=== PATIENT | female | born 1970 | race Caucasian/White ===

== ENCOUNTER 2018-01-01 10:30 | Outpatient (RCR) | payer MEDICARE, MEDICAID, SELFPAY ==
--- NOTE | 2017-09-26 16:00 | PT.OIE ---
Current Diagnoses Stress incontinence (female) (male) (09/26/17) Provider Visit Care Team Role Provider Type Barry Elam MD Attending Provider Non-Staff Primary Care Provider Specialty: Internal Medicine Address: [facility] [place], [address] Email: Physical Therapy Initial Evaluation PT-OP-A Visit Information Start: 09/26/17 08:03 Freq: Status: Active Protocol: Document 09/26/17 09:05 LRN (Rec: 09/26/17 09:59 LRN [id number]) Out-Patient Physical Therapy Visit Information Visit Information Visit Type Initial Evaluation Visit Note 04/12 Visit Start Time 09:05 Visit Stop Time 10:55 Total Visit Minutes 50 Visit Number 1 Number of OCCUPATIONAL HEALTH COORDINATOR Visits 0 Evaluation Information Evaluation Date 09/26/17 PT-OP-B Current Condition Start: 09/26/17 08:03 Freq: Status: Active Protocol: Document 09/26/17 09:05 LRN (Rec: 09/26/17 18:31 LRN [id number]) Current Condition History of Current Condition Onset Date 2014 Current Complaints Urinary Leakage uncontrolled at times History of Current Condition Pt reports in 1999 after giving to her daughter ( 1998) she experienced mild incontinence that was treated with physical therapy with good results. In 2014 she was diagnosed with Multiple Sclerosis and was experiencing urinary incontinence with or without activity and sometimes uncontrolled. She denies having fecal leakage. Recently she has been dealing with onset of kidney stones that is a side effect of medications she is currently taking for her migraines. She denies having bladder infections. She notes her urinary leakage is constant through the day. Leakage is variable in nature from wetting her pads to outerwear. She reports having urge sensations, but sometimes the leakage is of sudden onset. She sometimes can delay 1-2 minutes. Leakage occurs in all positions. She is urinating 10+ times per day and 4+ times at night. Prior Treatments and Tests 1999 post- physical therapy with good results. She reports being told her bladder was voiding completely . Future Testing and Treatments Planned She is seeing a urologist tomorrow for her kidney stones . Treatment Goals Patient/Caregiver Goals Pt goal is to strengthen her PF and to learn what to do and how to perform a proper PF contraction to minimize her urinary leakage. Prior Functional Status Baseline Function- ADL's Independent Baseline Function- Mobility Independent Current Functional Impairments (Reported) Functional Limitations- ADL's Sitting tolerance limited due to back pain. Functional Limitations- Other Limited in social outings due to level of incontinence Personal Factors Other Personal Factors That May Effect Dx: Multiple Sclerosis, Therapy/Recovery Fibromyalgia, Kidney stones in both kidneys (pt believes is due to migraine medications), history of irritable bowel syndrome, tailbone fx, migraines, 4 L knee surgeries. PT-OP-C Subjective Start: 09/26/17 08:03 Freq: Status: Active Protocol: Document 09/26/17 09:05 LRN (Rec: 09/26/17 18:31 LRN [id number]) OP-PT Subjective Patient Comments Patient Comments States she may have to have the kidney stones blasted because they are so large. Patient Questionnaires Pelvic Pain and Urgency/Frequency Patient Symptom Scale Pelvic Pain Score 17 PT-OP-I Pelvic Floor Start: 09/26/17 08:03 Freq: Status: Active Protocol: Document 09/26/17 09:05 LRN (Rec: 09/26/17 18:31 LRN [id number]) Pelvic Floor Assessment Urine Pelvic Floor Surgery No Urinary Symptoms Urge Sensation Prolapse Other Urinary Symptoms Sudden loss of continence. Leakage Size Medium Leakage Cause Cough Exercise Lifting Sneeze Urge Other Leakage Causes Without reason Leaks Per Day 10+ Voiding Frequency 10+ Nocturia 4+ Urine Pad Type Maxi Pad Depends Pelvic Clock Pelvic Clock 3-6 Tenderness Pelvic Clock 9-12 Tenderness Tightness Prolapse Cystocele Grade 3 Perineal Descent Resting Present Bearing Present Contraction Ability Voluntary Contraction Weak Manual Muscle Testing Left 0 Manual Muscle Testing Right 1 Manual Muscle Testing Anterior 0 Manual Muscle Testing Posterior 3 Muscle Endurance (Seconds) 0 Number of Quick Contractions In 10 2 Seconds Comments Pelvic Floor Comments Endurance: Posterior PF lift felt 10 sec's, Anterior and sidewall PF lift: 0 sec's Quick Contractions: 2 reps prior to decrease strength. Contraction only felt in posterior PF. PT-OP-Q Treatments Start: 09/26/17 08:03 Freq: Status: Active Protocol: Document 09/26/17 09:05 LRN (Rec: 09/26/17 18:31 LRN [id number]) Self-Care/Home Management Treatment Education Patient Education Home Exercise Program Other Education H/O's and I/S's given for Bladder Diary. H/O's and I/S's given for HEP of Kegel [employer] Aggravator Ex's. PT-OP-T Assessment and Plan Start: 09/26/17 08:03 Freq: Status: Active Protocol: Document 09/26/17 09:05 LRN (Rec: 09/26/17 18:31 LRN [id number]) Physical Therapy Assessment Rehab Potential Rehabilitation Potential Fair Evaluation Complexity Number of Personal Factors/Comorbidities 3 or More Number of Body Systems Impaired 3 Clinical Presentation at Evaluation Evolving Impairments Impairments Activity Tolerance ROM Strength Other Impairments Dysfunction of Urinary system due to Kidney stones Other Concerns Barriers to Rehabilitation MS, kidney stones, migraines, fibromyalgia, fractured tailbone, hx of L knee surgeries. Goals Four Impairment Decreased # of Quick Contractions prior to fatigue (2 reps) Instructional Support Technician Goal (LTG) Pt will be able to perform 10 quick contractions prior to fatigue in order to delay urination to prevent urinary leakage. Three Impairment Decreased PF Endurance Instructional Support Technician Goal (LTG) Pt will be able to hold a PF contraction for 10 sec's or greater with ant, post, sidewalls in order to decrease number of urinary incontinence episodes. LTG Duration 12/29/17 Two Impairment Weakness of PF Instructional Support Technician Goal (LTG) Pt will demonstrate PF strength of 4/5: squeeze pressure (contraction) and lift or displacement from ant, post, and side [place] to decrease the amount of leakage to wetting only pads. LTG Duration 12/29/17 One Impairment Lacks appropriate HEP Instructional Support Technician Goal (LTG) Pt will be independent in a self care/home exercise program LTG Duration 12/29/17 Assessment Summary Assessment Pt presents with pelvic floor (PF) anterior and lateral wall weakness, 3rd degree cystocele with prolapse extending to the vaginal opening during straining and coughing. The pt's level of urinary incontinence is exacerbated by her multiple sclerosis, possibly causing neurologic dysfunction effecting her ability to maintain continence. She also demonstrates weakness of her core, PF, hips, and is not able to perform an isolated PF contraction. The pt will benefit from skilled physical therapy for PF/core/hip strengthening; ROM and behavioral modification to help improve her level of continence. Physical Therapy Plan Frequency and Duration Frequency of Treatment 2x/Week Plan of Care Start Date 09/26/17 Plan of Care End Date 09/28/18 Therapeutic Interventions Therapeutic Interventions Home Exercise Program Joint Mobilizations Manual Therapy Neuromuscular Re-education Patient/Caregiver Education Self-Care/Home Management Soft Tissue Mobilization Therapeutic Exercises Modalities Cold Pack/Ice Massage Next Visit Focus/Plan Next Note Type Treatment Note Next Visit Plan Review Bladder Diary, training and ex for PF contraction in isolation of substitute muscles, facilitation for achieving and anterior PF contraction, progress core stabilization and hip ROM/ strengthening ex's.
--- NOTE | 2017-09-26 16:00 | PT.OPPOC ---
Current Diagnoses Stress incontinence (female) (male) (09/26/17) Provider Visit Care Team Role Provider Type Barry Elam MD Attending Provider Non-Staff Primary Care Provider Specialty: Internal Medicine Address: [facility] [place] [address] [place], [address] Email: Plan Of Care PT-OP-T Assessment and Plan Start: 09/26/17 08:03 Freq: Status: Active Protocol: Document 09/26/17 09:05 LRN (Rec: 09/26/17 18:31 LRN [id number]) Physical Therapy Assessment Rehab Potential Rehabilitation Potential Fair Evaluation Complexity Number of Personal Factors/Comorbidities 3 or More Number of Body Systems Impaired 3 Clinical Presentation at Evaluation Evolving Impairments Impairments Activity Tolerance ROM Strength Other Impairments Dysfunction of Urinary system due to Kidney stones Other Concerns Barriers to Rehabilitation MS, kidney stones, migraines, fibromyalgia, fractured tailbone, hx of L knee surgeries. Goals Four Impairment Decreased # of Quick Contractions prior to fatigue (2 reps) Reproductive Endocrinologist Goal (LTG) Pt will be able to perform 10 quick contractions prior to fatigue in order to delay urination to prevent urinary leakage. Three Impairment Decreased PF Endurance Reproductive Endocrinologist Goal (LTG) Pt will be able to hold a PF contraction for 10 sec's or greater with ant, post, sidewalls in order to decrease number of urinary incontinence episodes. LTG Duration 12/29/17 Two Impairment Weakness of PF Usp Goal (LTG) Pt will demonstrate PF strength of 4/5: squeeze pressure (contraction) and lift or displacement from ant, post, and side [place] to decrease the amount of leakage to wetting only pads. LTG Duration 12/29/17 One Impairment Lacks appropriate HEP Reproductive Endocrinologist Goal (LTG) Pt will be independent in a self care/home exercise program LTG Duration 12/29/17 Assessment Summary Assessment Pt presents with pelvic floor (PF) anterior and lateral wall weakness, 3rd degree cystocele with prolapse extending to the vaginal opening during straining and coughing. The pt's level of urinary incontinence is exacerbated by her multiple sclerosis, possibly causing neurologic dysfunction effecting her ability to maintain continence. She also demonstrates weakness of her core, PF, hips, and is not able to perform an isolated PF contraction. The pt will benefit from skilled physical therapy for PF/core/hip strengthening; ROM and behavioral modification to help improve her level of continence. Physical Therapy Plan Frequency and Duration Frequency of Treatment 2x/Week Plan of Care Start Date 09/26/17 Plan of Care End Date 12/29/17 Therapeutic Interventions Therapeutic Interventions Home Exercise Program Joint Mobilizations Manual Therapy Neuromuscular Re-education Patient/Caregiver Education Self-Care/Home Management Soft Tissue Mobilization Therapeutic Exercises Modalities Cold Pack/Ice Massage Next Visit Focus/Plan Next Note Type Treatment Note Next Visit Plan Review Bladder Diary, training and ex for PF contraction in isolation of substitute muscles, facilitation for achieving and anterior PF contraction, progress core stabilization and hip ROM/ strengthening ex's. Plan of Care Dates Plan of Care Start Date 09/26/17 Plan of Care End Date 12/29/17 Please Sign and Return: I have reviewed this Plan of Care and certify that the skilled therapy services above are required to meet the patient?s needs. Physician Signature Date Printed Name and Credentials Clinical Instructor Signature Printed Name and Credentials
--- NOTE | 2017-10-12 11:16 | PT.OTN ---
Current Diagnoses Stress incontinence (female) (male) (10/12/17) Physical Therapy Treatment Note PT-OP-A Visit Information Start: 09/26/17 08:03 Freq: Status: Active Protocol: Document 10/12/17 07:30 AMB (Rec: 10/12/17 08:16 AMB [id number]) Out-Patient Physical Therapy Visit Information Visit Information Visit Type Treatment Note Visit Start Time 07:30 Visit Stop Time 08:15 Total Visit Minutes 45 Visit Number 2 Evaluation Information Evaluation Date 09/26/17 PT-OP-B Current Condition Start: 09/26/17 08:03 Freq: Status: Active Protocol: Document 09/26/17 09:05 LRN (Rec: 09/26/17 18:31 LRN [id number]) Current Condition History of Current Condition Onset Date 2014 Current Complaints Urinary Leakage uncontrolled at times History of Current Condition Pt reports in 1999 after giving to her daughter ( 1998) she experienced mild incontinence that was treated with physical therapy with good results. In 2014 she was diagnosed with Multiple Sclerosis and was experiencing urinary incontinence with or without activity and sometimes uncontrolled. She denies having fecal leakage. Recently she has been dealing with onset of kidney stones that is a side effect of medications she is currently taking for her migraines. She denies having bladder infections. She notes her urinary leakage is constant through the day. Leakage is variable in nature from wetting her pads to outerwear. She reports having urge sensations, but sometimes the leakage is of sudden onset. She sometimes can delay 1-2 minutes. Leakage occurs in all positions. She is urinating 10+ times per day and 4+ times at night. Prior Treatments and Tests 1999 post- physical therapy with good results. She reports being told her bladder was voiding completely . Future Testing and Treatments Planned She is seeing a urologist tomorrow for her kidney stones . Treatment Goals Patient/Caregiver Goals Pt goal is to strengthen her PF and to learn what to do and how to perform a proper PF contraction to minimize her urinary leakage. Prior Functional Status Baseline Function- ADL's Independent Baseline Function- Mobility Independent Current Functional Impairments (Reported) Functional Limitations- ADL's Sitting tolerance limited due to back pain. Functional Limitations- Other Limited in social outings due to level of incontinence Personal Factors Other Personal Factors That May Effect Dx: Multiple Sclerosis, Therapy/Recovery Fibromyalgia, Kidney stones in both kidneys (pt believes is due to migraine medications), history of irritable bowel syndrome, tailbone fx, migraines, 4 L knee surgeries. PT-OP-C Subjective Start: 09/26/17 08:03 Freq: Status: Active Protocol: Document 10/12/17 07:30 AMB (Rec: 10/12/17 08:16 AMB [id number]) OP-PT Subjective Patient Comments Patient Comments Pt states she did not get handoutsat the last visit, so she did not do a bladder diary . She reports she has had a bladder study and they said she was not retaining urine. PT-OP-I Pelvic Floor Start: 09/26/17 08:03 Freq: Status: Active Protocol: Document 09/26/17 09:05 LRN (Rec: 09/26/17 18:31 LRN [id number]) Pelvic Floor Assessment Urine Pelvic Floor Surgery No Urinary Symptoms Urge Sensation Prolapse Other Urinary Symptoms Sudden loss of continence. Leakage Size Medium Leakage Cause Cough Exercise Lifting Sneeze Urge Other Leakage Causes Without reason Leaks Per Day 10+ Voiding Frequency 10+ Nocturia 4+ Urine Pad Type Maxi Pad Depends Pelvic Clock Pelvic Clock 3-6 Tenderness Pelvic Clock 9-12 Tenderness Tightness Prolapse Cystocele Grade 3 Perineal Descent Resting Present Bearing Present Contraction Ability Voluntary Contraction Weak Manual Muscle Testing Left 0 Manual Muscle Testing Right 1 Manual Muscle Testing Anterior 0 Manual Muscle Testing Posterior 3 Muscle Endurance (Seconds) 0 Number of Quick Contractions In 10 2 Seconds Comments Pelvic Floor Comments Endurance: Posterior PF lift felt 10 sec's, Anterior and sidewall PF lift: 0 sec's Quick Contractions: 2 reps prior to decrease strength. Contraction only felt in posterior PF. PT-OP-Q Treatments Start: 09/26/17 08:03 Freq: Status: Active Protocol: Document 10/12/17 07:30 AMB (Rec: 10/12/17 10:17 AMB [id number]) Neuro Re-Education Treatment Other Activities 3 Details pelvic floor contraction Comments without abdominal compensation with biofeedback 2 Details long holds Reps/Duration 5 seconds, tried 10 seconds Comments relax 10 seconds between in hooklying 1 Details quick flicks Reps/Duration 1 sec on, 1 second off Comments hooklying PT-OP-T Assessment and Plan Start: 09/26/17 08:03 Freq: Status: Active Protocol: Document 10/12/17 07:30 AMB (Rec: 10/12/17 10:17 SYD [id number]) Physical Therapy Assessment Assessment Summary Assessment 4.4 uHz maximum early in session, but then 2.5 later in session. Fatigues quickly Physical Therapy Plan Next Visit Focus/Plan Next Note Type Treatment Note Next Visit Plan Facilitation of anterior PF, give bladder diary again.
--- NOTE | 2017-10-23 08:13 | PT.OTN ---
Current Diagnoses Stress incontinence (female) (male) (10/23/17) Physical Therapy Treatment Note PT-OP-A Visit Information Start: 09/26/17 08:03 Freq: Status: Active Protocol: Document 10/23/17 07:30 AMB (Rec: 10/23/17 07:30 AMB [id number]) Out-Patient Physical Therapy Visit Information Visit Information Visit Type Treatment Note Visit Note 06/10 Visit Start Time 07:30 Visit Stop Time 08:15 Total Visit Minutes 45 Visit Number 3 Evaluation Information Evaluation Date 09/26/17 PT-OP-B Current Condition Start: 09/26/17 08:03 Freq: Status: Active Protocol: Document 09/26/17 09:05 LRN (Rec: 09/26/17 18:31 LRN [id number]) Current Condition History of Current Condition Onset Date 2014 Current Complaints Urinary Leakage uncontrolled at times History of Current Condition Pt reports in 1999 after giving to her daughter ( 1998) she experienced mild incontinence that was treated with physical therapy with good results. In 2014 she was diagnosed with Multiple Sclerosis and was experiencing urinary incontinence with or without activity and sometimes uncontrolled. She denies having fecal leakage. Recently she has been dealing with onset of kidney stones that is a side effect of medications she is currently taking for her migraines. She denies having bladder infections. She notes her urinary leakage is constant through the day. Leakage is variable in nature from wetting her pads to outerwear. She reports having urge sensations, but sometimes the leakage is of sudden onset. She sometimes can delay 1-2 minutes. Leakage occurs in all positions. She is urinating 10+ times per day and 4+ times at night. Prior Treatments and Tests 1999 post- physical therapy with good results. She reports being told her bladder was voiding completely . Future Testing and Treatments Planned She is seeing a urologist tomorrow for her kidney stones . Treatment Goals Patient/Caregiver Goals Pt goal is to strengthen her PF and to learn what to do and how to perform a proper PF contraction to minimize her urinary leakage. Prior Functional Status Baseline Function- ADL's Independent Baseline Function- Mobility Independent Current Functional Impairments (Reported) Functional Limitations- ADL's Sitting tolerance limited due to back pain. Functional Limitations- Other Limited in social outings due to level of incontinence Personal Factors Other Personal Factors That May Effect Dx: Multiple Sclerosis, Therapy/Recovery Fibromyalgia, Kidney stones in both kidneys (pt believes is due to migraine medications), history of irritable bowel syndrome, tailbone fx, migraines, 4 L knee surgeries. PT-OP-C Subjective Start: 09/26/17 08:03 Freq: Status: Active Protocol: Document 10/23/17 07:30 AMB (Rec: 10/23/17 07:44 AMB [id number]) OP-PT Subjective Patient Comments Patient Comments Patient states sx about the same, still difficult to engage pelvic floors, feels like she is using abs about 50 % of the time. PT-OP-I Pelvic Floor Start: 09/26/17 08:03 Freq: Status: Active Protocol: Document 09/26/17 09:05 LRN (Rec: 09/26/17 18:31 LRN [id number]) Pelvic Floor Assessment Urine Pelvic Floor Surgery No Urinary Symptoms Urge Sensation Prolapse Other Urinary Symptoms Sudden loss of continence. Leakage Size Medium Leakage Cause Cough Exercise Lifting Sneeze Urge Other Leakage Causes Without reason Leaks Per Day 10+ Voiding Frequency 10+ Nocturia 4+ Urine Pad Type Maxi Pad Depends Pelvic Clock Pelvic Clock 3-6 Tenderness Pelvic Clock 9-12 Tenderness Tightness Prolapse Cystocele Grade 3 Perineal Descent Resting Present Bearing Present Contraction Ability Voluntary Contraction Weak Manual Muscle Testing Left 0 Manual Muscle Testing Right 1 Manual Muscle Testing Anterior 0 Manual Muscle Testing Posterior 3 Muscle Endurance (Seconds) 0 Number of Quick Contractions In 10 2 Seconds Comments Pelvic Floor Comments Endurance: Posterior PF lift felt 10 sec's, Anterior and sidewall PF lift: 0 sec's Quick Contractions: 2 reps prior to decrease strength. Contraction only felt in posterior PF. PT-OP-Q Treatments Start: 09/26/17 08:03 Freq: Status: Active Protocol: Document 10/23/17 07:30 AMB (Rec: 10/23/17 07:31 AMB [id number]) Neuro Re-Education Treatment Other Activities 3 Details pelvic floor contraction Comments without abdominal compensation in seated 2 Details long holds Reps/Duration 5 seconds, tried 10 seconds Comments relax 10 seconds between in hooklying 1 Details quick flicks Reps/Duration 1 sec on, 1 second off Comments hooklying PT-OP-T Assessment and Plan Start: 09/26/17 08:03 Freq: Status: Active Protocol: Document 10/23/17 07:30 AMB (Rec: 10/23/17 08:12 AMB [id number]) Physical Therapy Assessment Assessment Summary Assessment Pt with greater difficulty in seated. Fatigues quickly. Can relax muscles in the beginning of the session, but then at the end difficulty relaxing. Physical Therapy Plan Next Visit Focus/Plan Next Note Type Treatment Note Next Visit Plan Progress to roll ins, roll outs. Progress relaxation techniques. Work into sitting posture more.
--- NOTE | 2017-10-26 09:13 | PT.OTN ---
Current Diagnoses Stress incontinence (female) (male) (10/26/17) Physical Therapy Treatment Note PT-OP-A Visit Information Start: 09/26/17 08:03 Freq: Status: Active Protocol: Document 10/26/17 08:18 LRN (Rec: 10/26/17 09:12 LRN [id number]) Out-Patient Physical Therapy Visit Information Visit Information Visit Type Treatment Note Visit Note 07/11 Visit Start Time 08:15 Visit Stop Time 09:00 Total Visit Minutes 45 Visit Number 4 Evaluation Information Evaluation Date 09/26/17 PT-OP-B Current Condition Start: 09/26/17 08:03 Freq: Status: Active Protocol: Document 09/26/17 09:05 LRN (Rec: 09/26/17 18:31 LRN [id number]) Current Condition History of Current Condition Onset Date 2014 Current Complaints Urinary Leakage uncontrolled at times History of Current Condition Pt reports in 1999 after giving to her daughter ( 1998) she experienced mild incontinence that was treated with physical therapy with good results. In 2014 she was diagnosed with Multiple Sclerosis and was experiencing urinary incontinence with or without activity and sometimes uncontrolled. She denies having fecal leakage. Recently she has been dealing with onset of kidney stones that is a side effect of medications she is currently taking for her migraines. She denies having bladder infections. She notes her urinary leakage is constant through the day. Leakage is variable in nature from wetting her pads to outerwear. She reports having urge sensations, but sometimes the leakage is of sudden onset. She sometimes can delay 1-2 minutes. Leakage occurs in all positions. She is urinating 10+ times per day and 4+ times at night. Prior Treatments and Tests 1999 post- physical therapy with good results. She reports being told her bladder was voiding completely . Future Testing and Treatments Planned She is seeing a urologist tomorrow for her kidney stones . Treatment Goals Patient/Caregiver Goals Pt goal is to strengthen her PF and to learn what to do and how to perform a proper PF contraction to minimize her urinary leakage. Prior Functional Status Baseline Function- ADL's Independent Baseline Function- Mobility Independent Current Functional Impairments (Reported) Functional Limitations- ADL's Sitting tolerance limited due to back pain. Functional Limitations- Other Limited in social outings due to level of incontinence Personal Factors Other Personal Factors That May Effect Dx: Multiple Sclerosis, Therapy/Recovery Fibromyalgia, Kidney stones in both kidneys (pt believes is due to migraine medications), history of irritable bowel syndrome, tailbone fx, migraines, 4 L knee surgeries. PT-OP-C Subjective Start: 09/26/17 08:03 Freq: Status: Active Protocol: Document 10/26/17 08:18 LRN (Rec: 10/26/17 09:12 LRN [id number]) OP-PT Subjective Patient Comments Patient Comments Not a whole lot has changed. Feeks the muscles spasm due to weakness. Does better if she does the long holds before the Quick Flicks. PT-OP-I Pelvic Floor Start: 09/26/17 08:03 Freq: Status: Active Protocol: Document 09/26/17 09:05 LRN (Rec: 09/26/17 18:31 LRN [id number]) Pelvic Floor Assessment Urine Pelvic Floor Surgery No Urinary Symptoms Urge Sensation Prolapse Other Urinary Symptoms Sudden loss of continence. Leakage Size Medium Leakage Cause Cough Exercise Lifting Sneeze Urge Other Leakage Causes Without reason Leaks Per Day 10+ Voiding Frequency 10+ Nocturia 4+ Urine Pad Type Maxi Pad Depends Pelvic Clock Pelvic Clock 3-6 Tenderness Pelvic Clock 9-12 Tenderness Tightness Prolapse Cystocele Grade 3 Perineal Descent Resting Present Bearing Present Contraction Ability Voluntary Contraction Weak Manual Muscle Testing Left 0 Manual Muscle Testing Right 1 Manual Muscle Testing Anterior 0 Manual Muscle Testing Posterior 3 Muscle Endurance (Seconds) 0 Number of Quick Contractions In 10 2 Seconds Comments Pelvic Floor Comments Endurance: Posterior PF lift felt 10 sec's, Anterior and sidewall PF lift: 0 sec's Quick Contractions: 2 reps prior to decrease strength. Contraction only felt in posterior PF. PT-OP-Q Treatments Start: 09/26/17 08:03 Freq: Status: Active Protocol: Document 10/26/17 08:18 LRN (Rec: 10/26/17 09:12 LRN [id number]) Neuro Re-Education Treatment Other Activities 5 Details PF relaxation Comments Relaxation of muscle groups and Deep breathing 4 Details LE Roll in/outs with Deep breathing Reps/Duration 10x Comments Extra time taken for training. 2 Details long holds Reps/Duration 5 seconds, tried 10 seconds Comments relax 10 seconds between in hooklying 1 Details quick flicks Reps/Duration 1 sec on, 1 second off Comments hooklying Self-Care/Home Management Treatment Education Patient Education Home Exercise Program Other Education Issued and reviewed HEP: LE Roll in/out with handout issued. PT-OP-T Assessment and Plan Start: 09/26/17 08:03 Freq: Status: Active Protocol: Document 10/26/17 08:18 LRN (Rec: 10/26/17 09:12 LRN [id number]) Physical Therapy Assessment Impairments Impairments Activity Tolerance ROM Strength Other Impairments Dysfunction of Urinary system due to Kidney stones Other Concerns Barriers to Rehabilitation MS, kidney stones, migraines, fibromyalgia, fractured tailbone, hx of L knee surgeries. Goals Four Impairment Decreased # of Quick Contractions prior to fatigue (2 reps) Detention Goal (LTG) Pt will be able to perform 10 quick contractions prior to fatigue in order to delay urination to prevent urinary leakage. Three Impairment Decreased PF Endurance Dramatic Art Teacher Goal (LTG) Pt will be able to hold a PF contraction for 10 sec's or greater with ant, post, sidewalls in order to decrease number of urinary incontinence episodes. LTG Duration 12/29/17 Two Impairment Weakness of PF Detention Goal (LTG) Pt will demonstrate PF strength of 4/5: squeeze pressure (contraction) and lift or displacement from ant, post, and side [place] to decrease the amount of leakage to wetting only pads. LTG Duration 12/29/17 One Impairment Lacks appropriate HEP Detention Goal (LTG) Pt will be independent in a self care/home exercise program LTG Duration 12/29/17 Assessment Summary Assessment Pt notes it is better to do long hold before quick flicks for less PF muscle spasms. Pt resting started 3.45 mV's, increased to ~7mV's after long holds training. Pt getting initial good contraction but unable to hold. Fatigues after ~2 sec's. Physical Therapy Plan Frequency and Duration Frequency of Treatment 2x/Week Plan of Care Start Date 09/26/17 Plan of Care End Date 12/29/17 Next Visit Focus/Plan Next Note Type Treatment Note Next Visit Plan Progress relaxation techniques . Check resting and strength in hooklie with bolster and hooklie with wedge for best position for ex response. Work into sitting posture more . Review Bladder Diary.
--- NOTE | 2017-12-29 10:18 | PT.OTN ---
Current Diagnoses Stress incontinence (female) (male) (12/29/17) Physical Therapy Treatment Note PT-OP-A Visit Information Start: 09/26/17 08:03 Freq: Status: Active Protocol: Document 12/29/17 09:20 LRN (Rec: 12/29/17 10:07 LRN [id number]) Out-Patient Physical Therapy Visit Information Visit Information Visit Type Treatment Note Visit Note 09/10 Visit Start Time 09:20 Visit Stop Time 10:00 Total Visit Minutes 40 Visit Number 5 Number of ATM TECHNICIAN Visits 0 PT-OP-B Current Condition Start: 09/26/17 08:03 Freq: Status: Active Protocol: Document 09/26/17 09:05 LRN (Rec: 09/26/17 18:31 LRN [id number]) Current Condition History of Current Condition Onset Date 2014 Current Complaints Urinary Leakage uncontrolled at times History of Current Condition Pt reports in 1999 after giving to her daughter ( 1998) she experienced mild incontinence that was treated with physical therapy with good results. In 2014 she was diagnosed with Multiple Sclerosis and was experiencing urinary incontinence with or without activity and sometimes uncontrolled. She denies having fecal leakage. Recently she has been dealing with onset of kidney stones that is a side effect of medications she is currently taking for her migraines. She denies having bladder infections. She notes her urinary leakage is constant through the day. Leakage is variable in nature from wetting her pads to outerwear. She reports having urge sensations, but sometimes the leakage is of sudden onset. She sometimes can delay 1-2 minutes. Leakage occurs in all positions. She is urinating 10+ times per day and 4+ times at night. Prior Treatments and Tests 1999 post- physical therapy with good results. She reports being told her bladder was voiding completely . Future Testing and Treatments Planned She is seeing a urologist tomorrow for her kidney stones . Treatment Goals Patient/Caregiver Goals Pt goal is to strengthen her PF and to learn what to do and how to perform a proper PF contraction to minimize her urinary leakage. Prior Functional Status Baseline Function- ADL's Independent Baseline Function- Mobility Independent Current Functional Impairments (Reported) Functional Limitations- ADL's Sitting tolerance limited due to back pain. Functional Limitations- Other Limited in social outings due to level of incontinence Personal Factors Other Personal Factors That May Effect Dx: Multiple Sclerosis, Therapy/Recovery Fibromyalgia, Kidney stones in both kidneys (pt believes is due to migraine medications), history of irritable bowel syndrome, tailbone fx, migraines, 4 L knee surgeries. PT-OP-C Subjective Start: 09/26/17 08:03 Freq: Status: Active Protocol: Document 12/29/17 09:20 LRN (Rec: 12/29/17 10:07 LRN [id number]) OP-PT Subjective Patient Comments Patient Comments Doing better, not as much leakage. Don't go with every urge. Recovering from having kidney stones, so urinating frequently as stones are being passed. PT-OP-I Pelvic Floor Start: 09/26/17 08:03 Freq: Status: Active Protocol: Document 12/29/17 09:20 LRN (Rec: 12/29/17 10:12 LRN [id number]) Pelvic Floor Assessment Comments Pelvic Floor Comments On Wedge: Quick Contractions (Avg): Work : 9.77 microV's, Rest: 7.73 microV's. Long Holds (Avg): Work: 6.64 microV's, Rest: 8.09 microV's. PT-OP-Q Treatments Start: 09/26/17 08:03 Freq: Status: Active Protocol: Document 12/29/17 09:20 LRN (Rec: 12/29/17 10:07 LRN [id number]) Therapeutic Exercises Sidelying Exercises Clamshell Side bilateral Sitting Exercises Roll in/out Side bilateral Resistance Ball Neuro Re-Education Treatment Other Activities 5 Details PF relaxation Comments Relaxation of muscle groups and Deep breathing 4 Details LE Roll in/outs with Deep breathing Reps/Duration 10x Comments Extra time taken for training. 3 Details pelvic floor contraction Comments without abdominal compensation in seated 2 Details long holds Reps/Duration 5 seconds, tried 10 seconds Comments relax 10 seconds between in hooklying 1 Details quick flicks Reps/Duration 1 sec on, 1 second off Comments hooklying Self-Care/Home Management Treatment Education Patient Education Home Exercise Program Other Education Issued Clamshell ex Activities Self-Care/Home Management Activities I/S pt in HEP: sitting Deep breathing with LE roll in/outs and progression with Kegel and use of resistance. Issued Bladder Diary for pt to complete. PT-OP-T Assessment and Plan Start: 09/26/17 08:03 Freq: Status: Active Protocol: Document 12/29/17 09:20 LRN (Rec: 12/29/17 10:07 LRN [id number]) Physical Therapy Assessment Impairments Impairments Activity Tolerance ROM Strength Other Impairments Dysfunction of Urinary system due to Kidney stones Other Concerns Barriers to Rehabilitation MS, kidney stones, migraines, fibromyalgia, fractured tailbone, hx of L knee surgeries. Goals Four Impairment Decreased # of Quick Contractions prior to fatigue (2 reps) Sql Server Bi Developer Goal (LTG) Pt will be able to perform 10 quick contractions prior to fatigue in order to delay urination to prevent urinary leakage. Three Impairment Decreased PF Endurance Care Home Goal (LTG) Pt will be able to hold a PF contraction for 10 sec's or greater with ant, post, sidewalls in order to decrease number of urinary incontinence episodes. LTG Duration 12/29/17 Two Impairment Weakness of PF Sql Server Bi Developer Goal (LTG) Pt will demonstrate PF strength of 4/5: squeeze pressure (contraction) and lift or displacement from ant, post, and side [place] to decrease the amount of leakage to wetting only pads. LTG Duration 12/29/17 One Impairment Lacks appropriate HEP Care Home Goal (LTG) Pt will be independent in a self care/home exercise program LTG Duration 12/29/17 Assessment Summary Assessment Pt having difficulty with Deep breathing and LE roll in/out coordination while in sitting, good in supine. Pt PF strength on wedge shows less strength and reduced resting tone compared to level supine position. Physical Therapy Plan Frequency and Duration Frequency of Treatment 2x/Week Plan of Care Start Date 09/26/17 Plan of Care End Date 12/29/17 Next Visit Focus/Plan Next Note Type Treatment Note Next Visit Plan Focus relaxation techniques for resting tone. Work into sitting posture more. Assess Bladder Diary. Try E-Stim for awareness of PF contraction. Try training for reducing resting tone and improving PF strength with biofeedback ( step down to rest and rodri). Assess for hip tightness.
--- NOTE | 2018-01-01 14:19 | PT.OTN ---
Current Diagnoses Stress incontinence (female) (male) (01/01/18) Physical Therapy Treatment Note PT-OP-A Visit Information Start: 09/26/17 08:03 Freq: Status: Active Protocol: Document 01/01/18 10:38 LRN (Rec: 01/01/18 11:22 LRN [id number]) Out-Patient Physical Therapy Visit Information Visit Information Visit Type Treatment Note Visit Note 10/10 Visit Start Time 10:38 Visit Stop Time 11:23 Total Visit Minutes 45 Visit Number 6 Number of CANDY POLISHER Visits 0 Evaluation Information Evaluation Date 09/26/17 PT-OP-B Current Condition Start: 09/26/17 08:03 Freq: Status: Active Protocol: Document 09/26/17 09:05 LRN (Rec: 09/26/17 18:31 LRN [id number]) Current Condition History of Current Condition Onset Date 2014 Current Complaints Urinary Leakage uncontrolled at times History of Current Condition Pt reports in 1999 after giving to her daughter ( 1998) she experienced mild incontinence that was treated with physical therapy with good results. In 2014 she was diagnosed with Multiple Sclerosis and was experiencing urinary incontinence with or without activity and sometimes uncontrolled. She denies having fecal leakage. Recently she has been dealing with onset of kidney stones that is a side effect of medications she is currently taking for her migraines. She denies having bladder infections. She notes her urinary leakage is constant through the day. Leakage is variable in nature from wetting her pads to outerwear. She reports having urge sensations, but sometimes the leakage is of sudden onset. She sometimes can delay 1-2 minutes. Leakage occurs in all positions. She is urinating 10+ times per day and 4+ times at night. Prior Treatments and Tests 1999 post- physical therapy with good results. She reports being told her bladder was voiding completely . Future Testing and Treatments Planned She is seeing a urologist tomorrow for her kidney stones . Treatment Goals Patient/Caregiver Goals Pt goal is to strengthen her PF and to learn what to do and how to perform a proper PF contraction to minimize her urinary leakage. Prior Functional Status Baseline Function- ADL's Independent Baseline Function- Mobility Independent Current Functional Impairments (Reported) Functional Limitations- ADL's Sitting tolerance limited due to back pain. Functional Limitations- Other Limited in social outings due to level of incontinence Personal Factors Other Personal Factors That May Effect Dx: Multiple Sclerosis, Therapy/Recovery Fibromyalgia, Kidney stones in both kidneys (pt believes is due to migraine medications), history of irritable bowel syndrome, tailbone fx, migraines, 4 L knee surgeries. PT-OP-C Subjective Start: 09/26/17 08:03 Freq: Status: Active Protocol: Document 01/01/18 10:38 LRN (Rec: 01/01/18 11:22 LRN [id number]) OP-PT Subjective Patient Comments Patient Comments Notice leakage is getting less , has gone from a pad to a liner. Haven't had kidney pain. PT-OP-I Pelvic Floor Start: 09/26/17 08:03 Freq: Status: Active Protocol: Document 12/29/17 09:20 LRN (Rec: 12/29/17 10:12 LRN [id number]) Pelvic Floor Assessment Comments Pelvic Floor Comments On Wedge: Quick Contractions (Avg): Work : 9.77 microV's, Rest: 7.73 microV's. Long Holds (Avg): Work: 6.64 microV's, Rest: 8.09 microV's. PT-OP-K Range of Motion Start: 09/26/17 08:03 Freq: Status: Active Protocol: Document 01/01/18 10:38 LRN (Rec: 01/01/18 14:14 LRN [id number]) Hip Goniometric Range of Motion Hip Measured in Degrees Right Passive Internal Rotation 50 External Rotation 70 Left Passive Testing Position Supine Internal Rotation 30 External Rotation 45 PT-OP-Q Treatments Start: 09/26/17 08:03 Freq: Status: Active Protocol: Document 01/01/18 10:38 LRN (Rec: 01/01/18 11:22 LRN [id number]) Therapeutic Exercises Supine Exercises LE Roll in/out Supine Exercise Name With Deep breathing Side bilateral Reps/Minutes 4' Hip flexor stretch Side left Reps/Minutes 3' Comments Followed by active stretch Lateral hip stretch Side left Reps/Minutes 3' Comments Followed by active stretch Hip IR stretch Supine Exercise Name Piriformis Side left Reps/Minutes 3' Comments Followed by active stretch Hip ER stretch Supine Exercise Name Fig 4 Side left Reps/Minutes 3' Comments Followed by active stretch Neuro Re-Education Treatment Other Activities PF awareness training Details Using vaginal electrode Reps/Duration 8' Comments Extra time taken to find pt's acceptable parameters of operation. Intensity: 25 10:20 5 Details PF relaxation Comments Relaxation of muscle groups and Deep breathing 4 Details On bolster: LE Roll in/outs with Deep breathing Reps/Duration 10x Comments Extra time taken for training. 3 Details pelvic floor contraction on bolster Comments without abdominal compensation , use of vaginal electrode per biofeedback. 2 Details long holds on bolster Reps/Duration 5 seconds, tried 10 seconds Comments relax 10 seconds between in hooklying, use of vaginal electrode per biofeedback. Self-Care/Home Management Treatment Education Patient Education Home Exercise Program Activities Self-Care/Home Management Activities Reviewed & Issued Hip mobility stretches. PT-OP-T Assessment and Plan Start: 09/26/17 08:03 Freq: Status: Active Protocol: Document 01/01/18 10:38 LRN (Rec: 01/01/18 11:22 LRN [id number]) Physical Therapy Assessment Assessment Summary Assessment Good awareness training with NMES and biofeedback training, Pt has asymmetry of hip mobility. Physical Therapy Plan Frequency and Duration Frequency of Treatment 2x/Week Plan of Care Start Date 09/26/17 Plan of Care End Date 12/29/17 Next Visit Focus/Plan Next Note Type Treatment Note Next Visit Plan Focus relaxation techniques for resting tone. Work into sitting posture more. Assess Bladder Diary. Try E-Stim for awareness of PF contraction. Try training for reducing resting tone and improving PF strength with biofeedback ( step down to rest and rodri). Assess for hip tightness.
--- NOTE | 2018-02-05 09:46 | PT.OPDS ---
Current Diagnoses Stress incontinence (female) (male) (01/01/18) Provider Visit Care Team Role Provider Type Barry Elam MD Attending Provider Non-Staff Primary Care Provider Specialty: Internal Medicine Address: [facility] [place], [address] Email: Visit Number Visit Number 6 Discharge Summary PT-OP-B Current Condition Start: 09/26/17 08:03 Freq: Status: Active Protocol: Document 02/05/18 09:32 LRN (Rec: 02/05/18 09:37 LRN [id number]) Current Condition Current Functional Impairments (Reported) Functional Limitations- ADL's Pt unavailable for final assessment. Functional Limitations- Other Pt unavailable for final assessment. PT-OP-C Subjective Start: 09/26/17 08:03 Freq: Status: Active Protocol: Document 01/01/18 10:38 LRN (Rec: 01/01/18 11:22 LRN [id number]) OP-PT Subjective Patient Comments Patient Comments Notice leakage is getting less , has gone from a pad to a liner. Haven't had kidney pain. PT-OP-I Pelvic Floor Start: 09/26/17 08:03 Freq: Status: Active Protocol: Document 02/05/18 09:32 LRN (Rec: 02/05/18 09:38 LRN [id number]) Pelvic Floor Assessment Urine Other Urinary Symptoms Pt unavailable for final assessment. Comments Pelvic Floor Comments Pt unavailable for final assessment. PT-OP-K Range of Motion Start: 09/26/17 08:03 Freq: Status: Active Protocol: Document 02/05/18 09:32 LRN (Rec: 02/05/18 09:39 LRN [id number]) Hip Goniometric Range of Motion Hip ROM Limitations Comments Pt unavailable for final assessment. PT-OP-T Assessment and Plan Start: 09/26/17 08:03 Freq: Status: Active Protocol: Document 02/05/18 09:32 LRN (Rec: 02/05/18 09:44 LRN [id number]) Physical Therapy Assessment Impairments Other Impairments Pt unavailable for final assessment. Goals Four Jail Goal (LTG) Pt unavailable for final assessment. Three Tank Farm Gauger Goal (LTG) Pt unavailable for final assessment. Two [employer] Farm Gauger Goal (LTG) Pt unavailable for final assessment. One Jail Goal (LTG) Pt was started on a home program. Assessment Summary Assessment The pt was seen for 4 physical therapy visits from September to January 2018 due to cancellations for apparently other medical conditions. The pt called to cancel all her remaining appointments and will request a return to physical therapy when she is medically able. The pt was unavailable for a final asessment. Thank you for your physical t therapy referral. Physical Therapy Plan Discharge Physical Therapy Discharge Reasons Patient Request Discharge Comments Discharge for other medical issues at pt request.
== END 2018-03-16 09:23 ==
LOC: PHYS 10:30
PROVIDERS: PCP Internal Medicine; Visit Provider Internal Medicine
DX: N39.3 Stress incontinence (female) (male) (principal)
CPT/HCPCS: 97110; 97112; 97162; 97535